=== PATIENT | male | born 1945 | race African-American/Black ===

== ENCOUNTER 2018-01-18 10:31 | Emergency (ER) | payer MEDICARE, MEDICAID ==
[~2018-01-18] VITALS: Ht 172.7 cm; Wt 74.8 kg
[~2018-01-18 10:31] MED LIST: AMLODIPINE BESY10 MG ORAL; ASPIR 8181 MG ORAL; CENTRUM COMPLE1 EAC1 PO; CLINDAMYCIN HC300 MG ORAL; CLOPIDOGREL75 MG ORAL; GABAPENTIN300 MG ORAL; HYDROCHLOROTHIA25 MG ORAL; LOSARTAN POTASS50 MG ORAL; NORCO 10-325 T1 EACH ORAL; SIMVASTATIN10 MG ORAL
[2018-01-18 10:53] VITALS: BP 116/73
[2018-01-18] MEDS ORDERED: NORCO 10-325 T1 EACH ORAL (11:03)
[2018-01-18 11:13] VITALS: BP 116/73
--- NOTE | 2018-01-18 11:19 | Emergency Room Report ---
History of Present Illness General Chief Complaint: Lower Back Pain or Injury Source: Patient Present Illness HPI Patient is a 72-year-old male who presented continued low back pain. The patient prior history of chronic pain. Patient had been prescribed [place] previously. The patient's followed by . The patient was noted to have no recent fever. He denied any numbness or weakness. He denies any changes in his symptoms. Patient states that he had been unable to the make an appointment with his physician and has an appointment for the following week. Allergies: Coded Allergies: PENICILLINS (Unverified Allergy, Unknown, 05/23/15) Patient History Past Medical History: see triage record Reviewed Nursing Documentation: PMH: Agreed; PSxH: Agreed Nursing Documentation-PMH Past Medical History: No History, Except For Hx Hypertension: Yes Review of Systems All Other Systems: negative except mentioned in HPI Physical Exam Vital Signs Date Time Temp Pulse Resp B/P (MAP) Pulse Ox O2 Delivery O2 Flow Rate FiO2 01/18/18 10:40 98.4 69 18 113/65 98 Room Air 98.4 General Appearance: well appearing, no apparent distress, alert, GCS 15 Head: normocephalic, atraumatic ENT: hearing grossly normal, normal voice Neck: full range of motion, supple Respiratory: no respiratory distress, speaking full sentences Gastrointestinal: normal inspection Musculoskeletal: normal inspection, no calf tenderness, decreased range of mation Neurologic: normal inspection, alert, oriented x3, responsive, normal gait Psychiatric: mood/affect normal Skin: no rash Medical Decision Making Diagnostic Impression: Primary Impression: Chronic pain ER Course The patient presented for back pain.Differential diagnosis included but was not limited to herniated disc, cauda equina syndrome, abdominal aortic aneurysm, perforated ulcer, spinal epidural abscess, spinal stenosis, lumbar fracture, metastatic lesion, pyelonephritis. Patient has a benign exam and does not appear to require any further imaging or laboratory testing at this time. The patient appears to have chronic pain.Contacted the patient's physician's office and they confirmed that he would be prescribed pain medication if he was able to see the physician who was unavailable. The patient was given prescription for short-term pain medication refill. Patient is advised to follow-up with his primary care physician for further mental evaluation and treatment as needed Last Vital Signs Date Time Temp Pulse Resp B/P (MAP) Pulse Ox O2 Delivery O2 Flow Rate FiO2 01/18/18 11:13 98.4 81 18 116/73 98 Room Air 98.4 Disposition: HOME, SELF-CARE Condition: Stable Scripts Hydrocodone Bit/Acetaminophen 10-325* (NORCO 10-325*) 1 Each Tablet 1 TAB ORAL Q6H PRN for For Pain, #20 TAB 0 Refills PRN PAIN Prov: Jm Taylor 01/18/18 Patient Instructions: Back Pain, Adult Jm Taylor January 18, 2018 11:19
== END 2018-01-18 11:18 | disposition home or self-care (01) ==
LOC: EMR 10:48
DX: G89.29 Other chronic pain (principal); M54.5 Low back pain; Z88.0 Allergy status to penicillin; I10 Essential (primary) hypertension
CPT/HCPCS: 99283

== ENCOUNTER 2019-01-30 14:03 | Emergency (ER) | payer MEDICARE, MEDICAID ==
[~2019-01-30] VITALS: Ht 172.7 cm; Wt 74.8 kg
--- NOTE | 2019-01-30 14:20 | NUR ---
ED Nurse Note: Patient walked in to ED c/o pain on the right knee radiating to his right buttock for 1 month. patient reports the pain radiating to the right buttock started 2 weeks ago. patient reports he was seen by a knee specialist/surgeon and xray taken on December 2018. patient reports 8/10 pain, patient reports inability to sit down due to pain. patient is alert awake x4
--- NOTE | 2019-01-30 14:56 | Emergency Room Report ---
History of Present Illness General Chief Complaint: Lower Extremity Injury Source: Medical Record Present Illness HPI 73-year-old male presents to the emergency department complaining of 8 out of 10 in severity "tightness" pain is been progressive with swelling and warmth to the posterior right thigh. Patient reports initially he was seen several days ago by his primary care provider when he had swelling and pain in the right knee joint which later he had diagnosed as degenerative changes on x-ray. Patient states that he is now having new pain that is radiating in the right thigh which is more significant than the pain he was dealing with with his knee. Patient denies trauma or fall open wounds or bleeding. Patient denies any recent insect bites or history of immunocompromise. Denies fevers or chills. He denies notable strenuous activities. He reports palpation or walking exacerbates his symptoms and he has not had any relief from over-the- counter medications. He denies back pain or history of sciatica. Allergies: Coded Allergies: PENICILLINS (Unverified Allergy, Unknown, 05/23/15) Patient History Past Medical History: see triage record Past Surgical History: none Pertinent Family History: none Reviewed Nursing Documentation: PMH: Agreed; PSxH: Agreed Nursing Documentation-PMH Past Medical History: No History, Except For Hx Hypertension: Yes Review of Systems All Other Systems: negative except mentioned in HPI Physical Exam Vital Signs Date Time Temp Pulse Resp B/P (MAP) Pulse Ox O2 Delivery O2 Flow Rate FiO2 01/30/19 14:11 98.2 83 16 95 Room Air Sp02 EP Interpretation: reviewed, normal General Appearance: no apparent distress, alert, GCS 15, non-toxic Head: normocephalic, atraumatic Eyes: bilateral eye normal inspection, bilateral eye PERRL ENT: hearing grossly normal, normal voice Neck: full range of motion Respiratory: lungs clear, normal breath sounds, speaking full sentences Cardiovascular #1: regular rate, rhythm, no edema, normal capillary refill Musculoskeletal: back normal, gait/station normal - Mildly compensatory favoring the right leg, normal range of motion, tender - Tenderness to palpation to the right hamstring there is warmth and erythema noted as well obvious swelling in the right thigh. Neurologic: alert, oriented x3, responsive, motor strength/tone normal, sensory intact, normal gait - Mildly compensatory favoring the right leg, speech normal, grossly normal Psychiatric: judgement/insight normal Skin: warm/dry, well hydrated, other - Tenderness to palpation to the right hamstring there is warmth and erythema noted as well obvious swelling in the right thigh Lymphatic: no adenopathy Medical Decision Making PA Attestation Dr. dalton is my supervising Physician whom patient management has been discussed with. Diagnostic Impression: Primary Impression: Hamstring tendinitis of right thigh Additional Impression: Cellulitis Qualified Codes: L03.115 - Cellulitis of right lower limb ER Course 73-year-old male presents to the emergency department complaining of 8 out of 10 in severity "tightness" pain is been progressive with swelling and warmth to the posterior right thigh. Patient reports initially he was seen several days ago by his primary care provider when he had swelling and pain in the right knee joint which later he had diagnosed as degenerative changes on x-ray. Patient states that he is now having new pain that is radiating in the right thigh which is more significant than the pain he was dealing with with his knee. Patient denies trauma or fall open wounds or bleeding. Patient denies any recent insect bites or history of immunocompromise. Denies fevers or chills. He denies notable strenuous activities. He reports palpation or walking exacerbates his symptoms and he has not had any relief from over-the- counter medications. He denies back pain or history of sciatica. Ddx considered but are not limited to Fracture, dislocation, contusion, Sprain/ Strain/Spasm, cellulitis, DVT, Septic Joint just to name a few.. Vital signs: are WNL, pt. is afebrile H&PE are most consistent with musculoskeletal injury are possible underlying cellulitis ORDERS: - None required at this time ED INTERVENTIONS: - None -I do not identify an emergent condition at this time. With current presentation , pt. is stable for close outpatient follow up and conservative treatment. D/ w pt. to return promptly to ED with worsening or new symptoms.- Pt. verbalizes' understanding and agreement with proposed treatment plan.proposed treatment plan. DISCHARGE: At this time pt. is stable for d/c to home. Will provide printed patient care instructions, and any necessary prescriptions. Care plan and follow up instructions have been discussed with the patient prior to discharge. Last Vital Signs Date Time Temp Pulse Resp B/P (MAP) Pulse Ox O2 Delivery O2 Flow Rate FiO2 01/30/19 14:11 98.2 83 16 95 Room Air Disposition: HOME, SELF-CARE Condition: Stable Scripts Diclofenac Sodium (VOLTAREN) 100 Gm Gel..gram. 1 APPLIC TP TID, #100 GM Prov: Karmen Varghese 01/30/19 Methocarbamol* (ROBAXIN-750*) 750 Mg Tablet 750 MG PO QID for 7 Days, #28 TAB 0 Refills Prov: Karmen Varghese 01/30/19 Cephalexin* (KEFLEX*) 500 Mg Capsule 500 MG ORAL EVERY 12 HOURS for 7 Days, #14 CAP 0 Refills Prov: Karmen Varghese 01/30/19 Referrals: [facility] (PCP) Patient Instructions: Muscle Pain, Adult Additional Instructions: Take medications as directed. Follow up with a Primary Care Provider in 3-5 days, even if your symptoms have resolved. --Please review list of primary care clinics, if you do not already have a primary care provider Return sooner to ED if new symptoms occur, or current symptoms become worse. Do not drink alcohol, drive, or operate heavy machinery while taking ROBAXIN ( MUSCLE RELAXER) as this may cause drowsiness. - Please note that this Emergency Department Report was dictated using [employer] developer technology software, occasionally this can lead to erroneous entry secondary to interpretation by the dictation equipment. Karmen Varghese January 30, 2019 14:56
[2019-01-30] MEDS ORDERED: ROBAXIN-750750 MG PO (14:59)
[2019-01-30] MEDS ORDERED: CEPHALEXIN500 MG ORAL (14:59)
[2019-01-30] MEDS ORDERED: VOLTAREN100 G1 TP (14:59)
[2019-01-30 15:14] VITALS: BP 117/67
--- NOTE | 2019-01-30 15:15 | NUR ---
ER DISCHARGE NOTE: Patient is cleared to be discharged per DORIS MARTINO, pt is aox4, on room air, with stable vital signs. pt was given dc and prescription instructions, pt was able to verbalize understanding, patient verbalized understanding not to drive or operate heavy machinery while taking robaxin. pt id band removed without complications. pt is able to ambulate with steady gait. pt took all belongings.
== END 2019-01-30 15:16 | disposition home or self-care (01) ==
LOC: EMR 14:21
DX: M76.9 Unspecified enthesopathy, lower limb, excluding foot (principal); L03.115 Cellulitis of right lower limb; Z88.0 Allergy status to penicillin; I10 Essential (primary) hypertension
CPT/HCPCS: 99282

== ENCOUNTER 2019-02-24 14:36 | Emergency (ER) | payer MEDICARE, MEDICAID ==
[~2019-02-24] VITALS: Ht 172.7 cm; Wt 74.8 kg
[~2019-02-24 14:36] MED LIST changes: +CEPHALEXIN500 MG ORAL; +ROBAXIN-750750 MG PO; +VOLTAREN100 G1 TP
--- NOTE | 2019-02-24 14:38 | NUR ---
ED Nurse Note: Pt is not in the waiting room erma.
[2019-02-24 14:48] VITALS: BP 144/91
--- NOTE | 2019-02-24 14:49 | NUR ---
ED Nurse Note: Pt has been having R thigh and knee pain x "a couple of months". Pt came to [facility] last month and was prescribed Zanaflex but "thigh pain relieved but not knee pain". Pain 8/ erma. AOx4, VSS erma. Will cont to monitor.
--- NOTE | 2019-02-24 15:04 | Emergency Room Report ---
History of Present Illness General Chief Complaint: Pain Source: Patient Present Illness HPI 73-year-old male with chronic history of right knee pain x3 months here complaining of increased pain in the right knee. Patient was here a month ago and was diagnosed with cellulitis given a prescription for Robaxin, and Voltaren gel as well as Keflex. Patient follow-up with her primary care provider and was given referral for pain management and surgery however the surgery referral was for hand surgeon patient appears confused. Patient says that pain management appointment is not until 10 March. Patient has been taking Tylenol, low doses of ibuprofen, and Xiaflex for pain with minimal relief. Patient is using a cane. Patient has history of DVT and is currently on Plavix. Denies chest pain, headache, dizziness, shortness of breath, palpitation. Patient denies pain radiation, rating the pain 10 out of 10, upon walking. Denies tingling and numbness. Denies calf tenderness Allergies: Coded Allergies: PENICILLINS (Unverified Allergy, Unknown, 05/23/15) Patient History Past Medical History: see triage record Past Surgical History: unable to obtain Pertinent Family History: none Immunizations: UTD Reviewed Nursing Documentation: PMH: Agreed; PSxH: Agreed Nursing Documentation-PMH Past Medical History: No History, Except For Hx Cardiac Problems: Yes - High cholesterol, DVT Hx Hypertension: Yes Review of Systems All Other Systems: negative except mentioned in HPI Physical Exam Vital Signs Date Time Temp Pulse Resp B/P (MAP) Pulse Ox O2 Delivery O2 Flow Rate FiO2 02/24/19 14:42 98.1 72 20 144/91 (108) 95 Room Air Sp02 EP Interpretation: reviewed, normal General Appearance: normal inspection, well appearing, no apparent distress, alert Head: normocephalic, atraumatic Eyes: bilateral eye normal inspection, bilateral eye PERRL ENT: normal ENT inspection, hearing grossly normal, normal pharynx Neck: normal inspection, full range of motion, supple Respiratory: normal inspection, chest non-tender, lungs clear, no rhonchi, no wheezing Cardiovascular #1: normal inspection, normal peripheral pulses, regular rate, rhythm, no murmur Cardiovascular #2: 2+ dorsalis pedis (R), 2+ dorsalis pedis (L) Gastrointestinal: normal inspection, soft Genitourinary: no CVA tenderness Musculoskeletal: back normal, digits/nails normal, no calf tenderness, pelvis stable, other - right knee deformity Neurologic: normal inspection, alert, oriented x3, responsive Psychiatric: normal inspection, judgement/insight normal, memory normal Skin: normal inspection, normal color, warm/dry Lymphatic: normal inspection, no adenopathy Medical Decision Making PA Attestation All diagnoses and treatment plans were reviewed and discussed with my supervising physician Dr. Rojo Diagnostic Impression: Primary Impression: Chronic knee pain ER Course 73-year-old male with chronic history of right knee pain x3 months here complaining of increased pain in the right knee. Patient was here a month ago and was diagnosed with cellulitis given a prescription for Robaxin, and Voltaren gel as well as Keflex. Patient follow-up with her primary care provider and was given referral for pain management and surgery however the surgery referral was for hand surgeon patient appears confused. Patient says that pain management appointment is not until 10 March. Patient has been taking Tylenol, low doses of ibuprofen, and Xiaflex for pain with minimal relief. Patient is using a cane. Patient has history of DVT and is currently on Plavix. Denies chest pain, headache, dizziness, shortness of breath, palpitation. Patient denies pain radiation, rating the pain 10 out of 10, upon walking. Denies tingling and numbness. Denies calf tenderness Ddx considered but are not limited to: Knee sprain, knee fracture, chronic arthritic knee pain, DVT Vital signs: are WNL, pt. is afebrile H&PE are most consistent with: Chronic arthritic knee pain ORDERS: Robaxin, Voltaren gel, knee immobilizer, no x-ray needed this is not an acute condition there was no new injury no risk of DVT noted ED INTERVENTIONS: Knee immobilizer DISCHARGE: At this time pt. is stable for d/c to home. Will provide printed patient care instructions, and any necessary prescriptions. Care plan and follow up instructions have been discussed with the patient prior to discharge. I spoke with the pharmacist later and since Robaxin is not covered Zanaflex was called given instead however Voltaren gel is not covered and I recommended using [id number] lidocaine patches and follow-up with a primary care provider Last Vital Signs Date Time Temp Pulse Resp B/P (MAP) Pulse Ox O2 Delivery O2 Flow Rate FiO2 02/24/19 14:48 98.1 72 20 144/91 95 Room Air Disposition: HOME, SELF-CARE Condition: Stable Scripts Diclofenac Sodium (VOLTAREN) 100 Gm Gel..gram. 2 GM TP TID, #100 GM Prov: Hi Emery 02/24/19 Methocarbamol* (ROBAXIN*) 500 Mg Tablet 500 MG PO TID, #21 TAB 0 Refills Prov: Hi Emery 02/24/19 Patient Instructions: Knee Pain, [id number] Additional Instructions: Follow with pain management as well as Ortho as it was recommended by her primary care provider for your chronic knee pain no further imaging is needed at this point as there was no injury. Take medication as directed Hi Emery Feb 24, 2019 15:04
[2019-02-24] MEDS ORDERED: VOLTAREN100 G1 TP (15:05)
[2019-02-24] MEDS ORDERED: ROBAXIN500 MG PO (15:05)
[2019-02-24 15:18] VITALS: BP 144/91
--- NOTE | 2019-02-24 15:18 | NUR ---
ER DISCHARGE NOTE: Patient is cleared to be discharged per ERMD, pt is aox4, on room air, with stable vital signs. pt was given dc and prescription instructions, pt was able to verbalize understanding, pt id band removed. pt is able to ambulate with steady gait. pt took all belongings.
== END 2019-02-24 15:18 | disposition home or self-care (01) ==
LOC: EMR 15:00
DX: G89.29 Other chronic pain (principal); M25.561 Pain in right knee; I10 Essential (primary) hypertension; E78.00 Pure hypercholesterolemia, unspecified; Z86.718 Personal history of other venous thrombosis and embolism; Z88.0 Allergy status to penicillin
CPT/HCPCS: 99283

== ENCOUNTER 2020-02-29 08:46 | Emergency (ER) | payer OTHER, MEDICAID ==
[~2020-02-29] VITALS: Ht 172.7 cm; Wt 74.8 kg
[~2020-02-29 08:46] MED LIST changes: +CLARITIN10 MG ORAL; +DIOVAN80 MG ORAL; +IRON325 M1 PO; +ROBAXIN500 MG PO; +ZITHROMAX250 MG ORAL
[2020-02-29 08:53] VITALS: BP 139/89
--- NOTE | 2020-02-29 08:55 | NUR ---
ED Nurse Note: Pt ambulated to ED from home d/t LT side hip pain with 9/10 scale that radiates on his LT leg since yesterday. Pt is AOx4, calm and cooperative, VSS, on RA, afebrile on triage. Placed on tx room.
--- NOTE | 2020-02-29 08:57 | NUR ---
ED Nurse Note: ERMD at bedside.
[2020-02-29] MEDS ORDERED: Acetaminophen 500mg (ES) tab PO ONE (09:15)
--- NOTE | 2020-02-29 09:24 | NUR ---
ED Nurse Note: US tech at bedside.
--- NOTE | 2020-02-29 09:52 | NUR ---
ED Nurse Note: pt was taken to x-ray via wheelchair.
[2020-02-29] MEDS ORDERED: TYLENOL EXTRA500 MG ORAL (10:26)
[2020-02-29] MEDS ORDERED: LIDODERM700 M1 TOPIC (10:26)
[2020-02-29 10:30] VITALS: BP 139/89
--- NOTE | 2020-02-29 10:30 | NUR ---
ER DISCHARGE NOTE: Patient is cleared to be discharged per ERMD, pt is aox4, on room air, with stable vital signs. pt was given dc and prescription instructions, pt was able to verbalize understanding, pt id band removed pt is able to ambulate with steady gait. pt took all belongings.
--- NOTE | 2020-02-29 10:32 | Diagnostic Imaging Report ---
Indication: Hip pain. No trauma. Technique: AP view the pelvis. Frontal and frog lateral view of the left hip Comparison: None Findings: Anatomy shield in place. Bones are slightly demineralized. No acute fracture or dislocation is identified. There are mild degenerative changes of the bilateral hip joints with joint space narrowing and subchondral sclerosis. Enthesopathic changes noted within the pelvis. There are atherosclerotic vascular calcifications. Surgical clips noted in the left inguinal region. Probable femoral bypass graft on the left. Impression: Mild degenerative and enthesopathic changes. No acute fracture or dislocation. Atherosclerotic vascular calcifications with evidence of prior surgery in the left inguinal region suggesting prior arterial bypass. Correlation with physical exam findings and clinical history recommended.
--- NOTE | 2020-02-29 10:34 | Diagnostic Imaging Report ---
Indication: Left leg pain and swelling Technique: Grayscale and duplex Doppler imaging of the veins in left lower extremities performed in real time utilizing compression and augmentation. Comparison: None Findings: Duplex Doppler interrogation of the veins in left lower extremity is performed from the common femoral vein to the popliteal vein. Normal venous compressibility demonstrated throughout. No thrombus identified. Waveform analysis shows good respiratory phasicity and augmentation. Incidental note is made of a arterial bypass graft on the left which appears patent. A monophasic waveform is noted within the left dorsalis pedis artery as well. IMPRESSION: No evidence of deep venous thrombosis involving the left lower extremity. Incidental note made of a left lower extremity arterial bypass graft (probably femoral-popliteal bypass graft). Imaged portions of the graft are patent.
--- NOTE | 2020-02-29 10:56 | Emergency Room Report ---
History of Present Illness General Chief Complaint: Pain Source: Patient Present Illness HPI 74-year-old male presents complaining of left hip and buttock pain. Started a few days ago. Denies any fall or injury. Aching, 7 out of 10, radiating down the left leg. Denies any leg weakness. Denies any swelling. Use heating pad without significant relief. States he has history of DVT. Denies chest pain or shortness of breath. No other aggravating relieving factors. Denies any other associated symptoms Allergies: Coded Allergies: PENICILLINS (Unverified Allergy, Unknown, 09/10/19) COVID-19 Screening Contact w/high risk pt: No Recent Travel to affected area: No Experienced COVID-19 symptoms?: No COVID-19 Testing performed [employer]Y WORKER: No Patient History Past Medical History: HTN, other - DVT Pertinent Family History: none Social History: Denies: smoking, alcohol use, drug use Reviewed Nursing Documentation: PMH: Agreed; PSxH: Agreed Nursing Documentation-PMH Past Medical History: No History, Except For Hx Cardiac Problems: Yes - High cholesterol, DVT Hx Hypertension: Yes Physical Exam Vital Signs Date Time Temp Pulse Resp B/P (MAP) Pulse Ox O2 Delivery O2 Flow Rate FiO2 02/29/20 08:47 97.5 74 18 139/89 (106) 97 Room Air Medical Decision Making Diagnostic Impression: Primary Impression: Hip pain ER Course Hospital Course 74-year-old male presents with left hip pain Differential diagnoses include: DVT, cellulitis, contusion, abscess Clinical course Patient placed on stretcher after initial history and physical I ordered xray, pain medication and DVT ultrasound. Doppler ultrasound shows no evidence of DVT Xray shows no evidence of fx. DJD noted Likely Strain. Reassurance given. I discussed findings with patient. Will discharge home. Safe for discharge close outpatient follow-up. I will provide referrals I. I feel this is a highly complex case requiring extensive working including EKG/Rhythm strip, Xray/CT/US, Blood/urine lab work, repeat exams while in ED, and administration of strong opiates/narcotics for pain control, admission to hospital or close patient follow up. Diagnosis -hip pain Stable and discharged to home. Followup with PMD. Return to ED if symptoms recur or worsen Other X-Ray Diagnostic Results Other X-Ray Diagnostic Results : X-Ray ordered: L hip # of Views/Limited Vs Complete: 3 View Indication: Pain EP Interpretation: Yes Interpretation: no dislocation, no soft tissue swelling, no fractures Impression: No acute disease Electronically Signed by: Electronically signed by Vernon Santana MD CT/MRI/US Diagnostic Results CT/MRI/US Diagnostic Results : Imaging Test Ordered: Venous Duplex Impression no evidence of DVT Last Vital Signs Date Time Temp Pulse Resp B/P (MAP) Pulse Ox O2 Delivery O2 Flow Rate FiO2 02/29/20 10:30 97.5 71 20 139/89 99 Room Air Status: improved Disposition: HOME, SELF-CARE Condition: Stable Scripts Lidocaine Patch* (Lidoderm Patch*) 1 Each Adh..patch 1 PATCH TOPIC DAILY, #7 PATCH 0 Refills Patch(es) may remain in place for up to 12 hours in any 24-hour period. Prov: Vernon Santana MD 02/29/20 Acetaminophen* (TYLENOL EXTRA STRENGTH*) 500 Mg Tablet 500 MG ORAL Q8H PRN for Prn Headache/Temp > 101, #30 TAB 0 Refills Prov: Vernon Santana MD 02/29/20 Referrals: NON PHYSICIAN (PCP) [facility] Open 24 hour /7 days a week by Appointment Only [address] [facility] [address] Patient Instructions: Hip Pain Vernon Santana MD Feb 29, 2020 10:56
== END 2020-02-29 10:30 | disposition home or self-care (01) ==
LOC: EMR 09:25
DX: M25.552 Pain in left hip (principal); I10 Essential (primary) hypertension; E78.00 Pure hypercholesterolemia, unspecified; Z86.718 Personal history of other venous thrombosis and embolism
CPT/HCPCS: 73502; 93971; 99284

== ENCOUNTER 2020-03-07 10:47 | Emergency (ER) | payer MEDICARE, MEDICAID ==
[~2020-03-07] VITALS: Ht 172.7 cm; Wt 74.8 kg
[~2020-03-07 10:47] MED LIST changes: +LIDODERM700 M1 TOPIC; +TYLENOL EXTRA500 MG ORAL
--- NOTE | 2020-03-07 11:00 | NUR ---
ED Nurse Note: PT walked in to ED for C/O pain to left pain radiating to his leg x 1 week. pt reports when he stands up, the pain gets better
[2020-03-07] MEDS ORDERED: ROBAXIN-750750 MG PO (11:15)
[2020-03-07] MEDS ORDERED: Acetaminophen 500mg (ES) tab ORAL ONE (11:15)
[2020-03-07] MEDS ORDERED: Ketorolac 30mg Inj IM ONE (11:15)
[2020-03-07] MEDS ORDERED: IBUPROFEN600 M1 ORAL (11:15)
--- NOTE | 2020-03-07 11:15 | Emergency Room Report ---
History of Present Illness General Chief Complaint: Lower Extremity Injury Source: Patient, Medical Record Present Illness HPI 74-year-old male presents with a few days of left hip pain shooting pain down from the left lateral back, aggravated with certain positions/movement patient was seen previously with a negative x-ray and negative ultrasound for DVT patient states that the pain is sharp and shooting no perianal numbness no saddle anesthesia no bowel bladder retention/incontinence, patient denies any fevers chills or history of IV drug use patient presents for evaluation Allergies: Coded Allergies: PENICILLINS (Unverified Allergy, Unknown, 09/10/19) COVID-19 Screening Contact w/high risk pt: No Recent Travel to affected area: No Experienced COVID-19 symptoms?: No COVID-19 Testing performed CREDIT AUTHORIZER: No Patient History Past Medical History: see triage record Reviewed Nursing Documentation: PMH: Agreed; PSxH: Agreed Nursing Documentation-PMH Past Medical History: No History, Except For Hx Cardiac Problems: Yes - High cholesterol, DVT Hx Hypertension: Yes Review of Systems All Other Systems: negative except mentioned in HPI Physical Exam Vital Signs Date Time Temp Pulse Resp B/P (MAP) Pulse Ox O2 Delivery O2 Flow Rate FiO2 03/07/20 10:55 98.1 72 20 142/87 (105) 96 Room Air General Appearance: well appearing, no apparent distress Head: normocephalic, atraumatic ENT: hearing grossly normal, normal voice Neck: full range of motion, supple Respiratory: no respiratory distress, speaking full sentences Musculoskeletal: other - Bilateral lower extremities: 5-5 hip flexion extension , 5 out of 5 knee flexion extension, 5 out of 5 ankle plantar dorsiflexion, gait intact, sensation intact Neurologic: alert, normal gait Psychiatric: mood/affect normal Skin: no rash Medical Decision Making Diagnostic Impression: Primary Impression: Sciatica of left side ER Course The patient presents with acute onset of sciatica. Clinically this patient can be ruled out for serious pathology given there is a completely normal neurological exam, no history of IV drug use, and no history of bowel or bladder incontinence, no perianal numbness/tingling, no constipation or urinary retention. Once the patient's pain was adequately controlled, the patient was able to ambulate and be discharged in stable condition with anticipatory guidance provided. Patient instructed on foam rolling, pain management, strict return precautions were discussed for red flags of back pain Last Vital Signs Date Time Temp Pulse Resp B/P (MAP) Pulse Ox O2 Delivery O2 Flow Rate FiO2 03/07/20 10:55 98.1 72 20 142/87 (105) 96 Room Air Disposition: HOME, SELF-CARE Condition: Stable Scripts Methocarbamol* (ROBAXIN-750*) 750 Mg Tablet 750 MG PO QID, #28 TAB 0 Refills Prov: Wilbert Dumas MD 03/07/20 Ibuprofen* (MOTRIN*) 600 Mg Tablet 600 MG ORAL Q8H PRN for FOR PAIN, #30 TAB 0 Refills Prov: Wilbert Dumas MD 03/07/20 Referrals: [facility] Patient Instructions: Sciatica With Rehab[facility], Sciatica, [id number] Additional Instructions: The patient was provided with discharge instructions, notified to follow-up with a primary care doctor and or specialist in the next 24-48 hours, and to return to the ED if they have worsening of their symptoms. Please note that this report is being documented using [employer] technology. This can lead to erroneous entry secondary to incorrect interpretation by the dictating instrument. Wilbert Dumas MD Mar 07, 2020 11:15
[2020-03-07 11:27] VITALS: BP 140/90
--- NOTE | 2020-03-07 11:27 | NUR ---
ER DISCHARGE NOTE: Patient is cleared to be discharged per ERMD, pt is aox4, on room air, with stable vital signs. pt was given dc and prescription instructions, pt was able to verbalize understanding, pt id band removed without complications. pt is able to ambulate with steady gait. pt took all belongings.
== END 2020-03-07 11:27 | disposition home or self-care (01) ==
LOC: EMR 11:05
DX: M54.32 Sciatica, left side (principal); Z88.0 Allergy status to penicillin; E78.00 Pure hypercholesterolemia, unspecified; I10 Essential (primary) hypertension; Z86.718 Personal history of other venous thrombosis and embolism
CPT/HCPCS: 96372; 99283; J1885; J8540

== ENCOUNTER 2020-09-29 11:51 | Emergency (ER) | payer MEDICARE, MEDICAID ==
[~2020-09-29] VITALS: Ht 172.7 cm; Wt 72.6 kg
[~2020-09-29 11:51] MED LIST changes: +IBUPROFEN600 M1 ORAL
--- NOTE | 2020-09-29 12:00 | NUR ---
ED Nurse Note: Pt ambulated to ED from home d/t dizziness that has been going on for 4 days. Pt is AOx4, calm and cooperative to care, pt was wheeled via w/c going to his room, speaks in full sentences. Per pt, it might be from his new prescription glasses.
[2020-09-29 12:10] VITALS: BP 150/74
--- NOTE | 2020-09-29 12:41 | Emergency Room Report ---
History of Present Illness General Chief Complaint: Dizziness Source: Patient (Jm Taylor MD) Present Illness HPI Patient is a 75-year-old male who presents for increased dizziness. Gradual onset over the past few days. States that he had been having increased spinning sensation as well as feeling of off-balance. Prior history of hypertension as well as peripheral vascular disease for which he has had stent placement in the past to his left lower extremity. Reports feeling off balance for several days. Has been followed by Dr. GARCIA. (Jm Taylor MD) Allergies: Coded Allergies: PENICILLINS (Unverified Allergy, Unknown, 09/10/19) COVID-19 Screening Contact w/high risk pt: No Recent Travel to affected area: No Experienced COVID-19 symptoms?: No COVID-19 Testing performed FLOOR ASSOCIATE: No (Jm Taylor MD) Patient History Reviewed Nursing Documentation: PMH: Agreed; PSxH: Agreed (Jm Taylor MD) Nursing Documentation-PMH Hx Cardiac Problems: Yes - High cholesterol, DVT Hx Hypertension: Yes (Jm Taylor MD) Review of Systems All Other Systems: negative except mentioned in HPI (Jm Taylor MD) Physical Exam Vital Signs Date Time Temp Pulse Resp B/P (MAP) Pulse Ox O2 Delivery O2 Flow Rate FiO2 09/29/20 11:56 97.5 54 19 150/74 (99) 98 Room Air Sp02 EP Interpretation: reviewed, normal General Appearance: normal inspection, well appearing, no apparent distress, alert Head: atraumatic ENT: normal ENT inspection, hearing grossly normal, normal voice Neck: normal inspection, full range of motion, supple, no bony tend Respiratory: normal inspection, lungs clear, normal breath sounds, no respiratory distress, no retraction, no wheezing Cardiovascular #1: regular rate, rhythm, no edema Gastrointestinal: normal inspection, normal bowel sounds, non tender, soft, no guarding, no hernia Genitourinary: no CVA tenderness Musculoskeletal: normal inspection, back normal, normal range of motion Neurologic: alert, motor strength/tone normal, chief program officer III-XII nml as tested, o riented x3, responsive, speech normal, normal inspection, other - no nystagmus Psychiatric: normal inspection, judgement/insight normal, mood/affect normal (Jm Taylor MD) Medical Decision Making Diagnostic Impression: Primary Impression: Dizziness Additional Impression: Peripheral vascular disease ER Course Presented for increased dizziness. Differential diagnosis include was not limited to CVA, hypertensive crisis, peripheral vertigo, vertebrobasilar insufficiency among others. Because of complexity of patient's case laboratory tests and imaging studies were ordered. Patient had some prior history of chronic hypertension as well as peripheral vascular disease. CT the head read by radiology showed no evidence of acute intracranial pathology. Patient was given meclizine.Patient was endorsed to Dr. Baum pending CT results as well as final disposition. (Jm Taylor MD) ER Course Patient signed out to me by previous physician. He was hemodynamically stable and neurovascularly intact. I informed the patient of his negative work-up and the need for further work-up and possible evaluation by a neurologist in an inpatient setting. I told the patient that he was accepted for admission at [facility]. Patient became angry saying that he did not want to be admitted whatsoever. He was demanding to leave. He was awake and alert, clinically sober, of sound mind. Decisional. I told the patient that he may have had a CVA and his condition could worsen if not properly treated. I informed him that he may suffer severe morbidity or even without proper treatment. Patient expressed understanding and despite this knowledge he was still requested to leave. Patient signed out AGAINST MEDICAL ADVICE. (Himanshu Baum M.D.) EKG Diagnostic Results Rate: normal Rhythm: NSR ST Segments: no acute changes (Jm Taylor MD) Last Vital Signs Date Time Temp Pulse Resp B/P (MAP) Pulse Ox O2 Delivery O2 Flow Rate FiO2 09/29/20 11:56 97.5 54 19 150/74 (99) 98 Room Air Status: improved (Jm Taylor MD) Disposition: AGAINST MEDICAL ADVICE Condition: Serious Scripts Meclizine Hcl* (MECLIZINE*) 25 Mg Tablet 25 MG ORAL THREE TIMES A DAY, #15 TAB Prov: Himanshu Baum M.D. 09/29/20 Jm Taylor MD Sep 29, 2020 12:41 Himanshu Baum M.D. Sep 29, 2020 17:11
[2020-09-29] MEDS ORDERED: Meclizine 25mg tab ORAL ONE (12:45)
--- NOTE | 2020-09-29 12:50 | NUR ---
ED Nurse Note: PT. WENT DOWN TO RADIOLOGY
[2020-09-29 13:27] LABS: BASOPHILS % (AUTO) 1.3 % (0.0-2.0); EOSINOPHILS % (AUTO) 1.5 % (0.0-3.0); HEMATOCRIT 42.7 % (42.0-52.0); HEMOGLOBIN 13.6 G/DL (14.2-18.0); LYMPHOCYTES % (AUTO) 23.2 % (20.0-45.0); MEAN CORPUSCULAR VOLUME 75 FL (80-99); MONOCYTES % (AUTO) 10.5 % (1.0-10.0); NEUTROPHILS % (AUTO) 63.5 % (45.0-75.0); PLATELET COUNT 267 K/UL (150-450); RED BLOOD COUNT 5.69 M/UL (4.70-6.10); RED CELL DISTRIBUTION WIDTH 12.9 % (11.6-14.8); WHITE BLOOD COUNT 4.6 K/UL (4.8-10.8)
--- NOTE | 2020-09-29 13:34 | Diagnostic Imaging Report ---
Indications: Dizziness Technique: Spiral acquisitions obtained through the brain. Angled axial and coronal 5 x 5 mm slices were reconstructed. Total dose length product and 45 mGycm. CTDI vol(s) 53 mGy. Dose reduction achieved using automated exposure control Comparison: None. Findings: No acute intracranial hemorrhage or edema, mass effect, nor midline shift. Normal carlisle-white differentiation. Normal size ventricles and extra axial CSF spaces. Mastoids are clear. Visualized orbits and sinuses are unremarkable. The calvarium is intact. Impression: Negative. No acute intracranial bleed or mass effect The CT scanner at [facility] is accredited by the [employer] and the scans are performed using protocols designed to limit radiation exposure to as low as reasonably achievable to attain images of sufficient resolution adequate for diagnostic evaluation.
[2020-09-29 13:35] LABS: CREATINE KINASE 330 U/L (26-308)
[2020-09-29 14:49] LABS: ANION GAP 7 mmol/L (5-15); BLOOD UREA NITROGEN 17 mg/dL (7-18); CALCIUM 9.3 MG/DL (8.5-10.1); CARBON DIOXIDE 28 MMOL/L (21-32); CHLORIDE 107 MMOL/L (98-107); CREATININE 1.4 MG/DL (0.55-1.30); POTASSIUM 4.5 MMOL/L (3.5-5.1); SODIUM 142 MMOL/L (136-145)
[2020-09-29 14:53] LABS: ALANINE AMINOTRANSFERASE 19 U/L (12-78); ALBUMIN/GLOBULIN RATIO 0.7 (1.0-2.7); ALKALINE PHOSPHATASE 55 U/L (46-116); ASPARTATE AMINO TRANSFERASE 30 U/L (15-37); BILIRUBIN,TOTAL 0.4 MG/DL (0.2-1.0)
[2020-09-29] MEDS ORDERED: Aspirin Baby 81mg ORAL ONE (16:45)
[2020-09-29] MEDS ORDERED: MECLIZINE HCL25 MG ORAL (17:09)
[2020-09-29 17:20] VITALS: BP 148/72
--- NOTE | 2020-09-29 17:20 | NUR ---
AMA: SEE AMA FORM. Pt signed ama form. Pt was informed by HERMAN about the risks of leaving against medical advice. Pt is aox4, calm, VSS, on RA, IV site was removed without complications. Pt left ED taking all his belongings.
== END 2020-09-29 17:20 | disposition left against medical advice (07) ==
LOC: EMR 12:45 → CANBEDREQ 17:18 → EMR 17:20
DX: R42 Dizziness and giddiness (principal); I73.9 Peripheral vascular disease, unspecified; Z20.822 Contact with and (suspected) exposure to COVID-19; I10 Essential (primary) hypertension; E78.00 Pure hypercholesterolemia, unspecified; Z86.718 Personal history of other venous thrombosis and embolism; Z88.0 Allergy status to penicillin
CPT/HCPCS: 70450; 80053; 82550; 84443; 84484; 85025; 85379; 85610; 85730; 93005; 99284; G0480; U0002